=== PATIENT | female | born 1940 | race African-American/Black ===

== ENCOUNTER 2022-07-25 09:32 | Outpatient (REF) | payer MEDICARE, SELFPAY | END 2022-07-25 09:33 | disposition home or self-care (01) | LOC: HO.MDS 09:32 | PROVIDERS: PCP Internal Medicine; Visit Provider Psychiatry & Neurology Neurology | DX: G61.89 Other inflammatory polyneuropathies (principal) | CPT/HCPCS: 96365; 96366; J1569 ==

== ENCOUNTER 2022-07-26 09:46 | Outpatient (REF) | payer MEDICARE, SELFPAY | END 2022-07-26 09:47 | disposition home or self-care (01) | LOC: HO.MDS 09:46 | PROVIDERS: PCP Internal Medicine; Visit Provider Psychiatry & Neurology Neurology | DX: G61.82 Multifocal motor neuropathy (principal) | CPT/HCPCS: 96365; 96366; J1569 ==

== ENCOUNTER 2022-07-27 09:39 | Outpatient (REF) | payer MEDICARE, SELFPAY | END 2022-07-27 09:40 | disposition home or self-care (01) | LOC: HO.MDS 09:39 | PROVIDERS: PCP Internal Medicine; Visit Provider Internal Medicine | DX: G61.82 Multifocal motor neuropathy (principal) | CPT/HCPCS: 96365; 96366; J1569 ==

== ENCOUNTER 2022-07-28 09:36 | Outpatient (REF) | payer MEDICARE, SELFPAY | END 2022-07-28 09:37 | disposition home or self-care (01) | LOC: HO.MDS 09:36 | PROVIDERS: PCP Internal Medicine; Visit Provider Psychiatry & Neurology Neurology | DX: G61.82 Multifocal motor neuropathy (principal) | CPT/HCPCS: 96365; 96366; J1569 ==

== ENCOUNTER 2022-07-29 09:29 | Outpatient (REF) | payer MEDICARE, SELFPAY | END 2022-07-29 09:30 | disposition home or self-care (01) | LOC: HO.MDS 09:29 | PROVIDERS: Visit Provider Psychiatry & Neurology Neurology | DX: G61.82 Multifocal motor neuropathy (principal) | CPT/HCPCS: 96365; J1569 ==